=== PATIENT | female | born 1945 | race Caucasian/White ===

== ENCOUNTER 2023-07-10 22:49 | Outpatient (CLI) | payer MEDICARE, OTHER, SELFPAY | END 2023-07-10 22:50 | disposition home or self-care (01) | LOC: AMB 07-17 17:49 | PROVIDERS: Visit Provider Internal Medicine | DX: R10.9 Unspecified abdominal pain (principal) | CPT/HCPCS: A0425; A0427 ==

== ENCOUNTER 2023-09-07 04:43 | Outpatient (CLI) | payer MEDICARE, OTHER, SELFPAY | END 2023-09-07 04:44 | disposition home or self-care (01) | LOC: AMB 09-17 22:56 | PROVIDERS: Visit Provider Family Medicine | DX: R10.9 Unspecified abdominal pain (principal) | CPT/HCPCS: A0425; A0433 ==

== ENCOUNTER 2023-09-21 23:55 | Outpatient (CLI) | payer MEDICARE, OTHER, SELFPAY | END 2023-09-21 23:56 | disposition home or self-care (01) | LOC: AMB 09-23 11:03 | PROVIDERS: Visit Provider Family Medicine | DX: R10.9 Unspecified abdominal pain (principal) | CPT/HCPCS: A0425; A0427 ==

== ENCOUNTER 2024-12-11 16:03 | Outpatient (CLI) | payer MEDICARE, OTHER, SELFPAY | END 2024-12-11 16:04 | disposition home or self-care (01) | LOC: AMB 12-13 10:01 | PROVIDERS: Visit Provider Emergency Medicine | DX: R10.9 Unspecified abdominal pain (principal) | CPT/HCPCS: A0425; A0433 ==